=== PATIENT | female | born 1965 | race Caucasian/White ===

== ENCOUNTER → 2017-01-18 | Outpatient (CLI) | payer BC ==
--- NOTE | 2017-01-18 21:25 | MR ---
EXAMINATION TYPE: MR pituitary wo/w con DATE OF EXAM: 01/18/2017 9:12 PM COMPARISON: MRI brain September 28, 2011. HISTORY: F/U on pituitary adenoma TECHNIQUE: Multiplanar, multisequence images of the brain and brainstem is performed without and with IV contras t, utilizing 17 mL intravenous MultiHance . Pituitary gland protocol. FINDINGS: Pituitary stalk shows stable homogeneous enhancement in the midline on coronal image 13. Pi tuitary gland is not enlarged at the level of the sella turcica. Post contrast images show heterogene ous enhancement with small area of diminished enhancement involving the posterior inferior aspect see n best on sagittal image 11 that is not changed from prior exam. Microadenoma at this level cannot be excluded. Suprasellar cistern is maintained. Optic chiasm is not effaced. Foramen magnum is within normal limit s. No gross hydrocephalus is present. IMPRESSION: Overall stable findings, small microadenoma posterior inferior aspect of pituitary gland cannot be excluded.
== END | disposition home or self-care (01) ==
LOC: RADMRIMAIN 20:05
PROVIDERS: ATTEND Family Medicine
DX: D35.2 Benign neoplasm of pituitary gland (principal)
CPT/HCPCS: 70553; A9577

== ENCOUNTER → 2017-12-21 | Outpatient (CLI) | payer BC ==
--- NOTE | 2017-12-21 09:44 | CT ---
EXAMINATION TYPE: CT facial bones w con DATE OF EXAM: 12/21/2017 COMPARISON: NONE HISTORY: Chronic sinusitis, unspecified CT DLP: 624 mGycm Automated exposure control for dose reduction was used. CONTRAST: CT scan of the facial bones is performed with IV Contrast, patient injected with 100 ml mL of Omnipaq ue 300. TECHNIQUE: CT scan of the sinuses is performed without contrast, axial images are obtained, coronal r eformatted images are also reviewed. FINDINGS: Dental amalgam causes some artifact across the exam. There is a tooth that is unerupted, it has partially extending into the right maxillary sinus posteriorly. Minimal mucosal disease present within the bilateral maxillary sinuses. Melissa bullosa present bilaterally greater on the right side. Visualized portion of mastoid air cells show no abnormal opacification. The globes are intact bilate rally. IMPRESSION: Mild mucoperiosteal thickening in the maxillary sinuses with unerupted tooth posteriorly as described.
== END | disposition home or self-care (01) ==
LOC: RADCTMAIN 08:11
PROVIDERS: ATTEND Family Medicine
DX: J34.89 Other specified disorders of nose and nasal sinuses (principal)
CPT/HCPCS: 70487; Q9967

== ENCOUNTER → 2018-01-25 | Outpatient (CLI) | payer BC ==
--- NOTE | 2018-01-25 12:11 | ECHOF ---
Referral Reason:I51.7 Cardiomegaly MEASUREMENTS -------- HEIGHT: 165.1 cm WEIGHT: 83.0 kg BP: RVIDd: 2.9 cm (< 3.3) IVSd: 1.2 cm (0.6 - 1.1) LVIDd: 4.0 cm (3.9 - 5.3) LVPWd: 1.1 cm (0.6 - 1.1) IVSs: 1.3 cm LVIDs: 3.1 cm LVPWs: 1.2 cm LA Diam: 3.0 cm (2.7 - 3.8) LAESV Index (A-L): 21.41 ml/m Ao Diam: 2.7 cm (2.0 - 3.7) AV Cusp: 1.8 cm (1.5 - 2.6) LA Diam: 3.6 cm (2.7 - 3.8) MV EXCURSION: 15.618 mm (> 18.000) MV EF SLOPE: 93 mm/s (70 - 150) EPSS: 0.5 cm MV E Bernardo: 0.86 m/s MV DecT: 134 ms MV A Bernardo: 0.56 m/s MV E/A Ratio: 1.53 RAP: 5.00 mmHg RVSP: 24.54 mmHg FINDINGS -------- Sinus rhythm. This was a technically adequate study. The left ventricular size is normal. There is mild concentric left ventricular hypertrophy. Overa ll left ventricular systolic function is normal with, an EF between 55 - 60 %. The right ventricle is normal in size. The left atrial size is normal. Normal LA size by volume 22+/-6 ml/m2. The right atrial size is normal. The aortic valve is trileaflet, and appears structurally normal. No aortic stenosis or regurgitation. Mild mitral annular calcification present. Mild mitral regurgitation is present. Mild tricuspid regurgitation present. There is no evidence of pulmonary hypertension. The right v entricular systolic pressure, as measured by Doppler, is 24.54mmHg. There is no pulmonic regurgitation present. The aortic root size is normal. There is no pericardial effusion. CONCLUSIONS -------- 1. The left ventricular size is normal. 2. There is mild concentric left ventricular hypertrophy. 3. Overall left ventricular systolic function is normal with, an EF between 55 - 60 %. 4. Normal LA size by volume 22+/-6 ml/m2. 5. The aortic valve is trileaflet, and appears structurally normal. No aortic stenosis or regurgitati on. 6. Mild mitral annular calcification present. 7. Mild mitral regurgitation is present. 8. Mild tricuspid regurgitation present. 9. There is no evidence of pulmonary hypertension. 10. The right ventricular systolic pressure, as measured by Doppler, is 24.54mmHg. 11. There is no pulmonic regurgitation present. 12. The aortic root size is normal. 13. There is no pericardial effusion. EXCAVATOR BACKHOE OPERATOR: Helga Jasmine RDCS
== END ==
LOC: RADECHMAIN 07:35
PROVIDERS: ATTEND Family Medicine
DX: I08.1 Rheumatic disorders of both mitral and tricuspid valves (principal)
CPT/HCPCS: 93306

== ENCOUNTER 2018-04-04 05:38 | Day surgery (SDC) | payer BC ==
[2018-04-01 11:28] VITALS: BMI 29.0
[~2018-04-04 05:38] MED LIST: DEXAMETHASONE SOD PHOSPHATE 10 MG/ML 1 ML VIAL IV ONE; FAMOTIDINE 20 MG/2 ML VIAL IV ONE; LACTATED RINGERS 1,000 ML IV SCH; LIDOCAINE 1% 20 ML VIAL (10MG/ML) FOR IV START INTRADERMA PRN; MIDAZOLAM 2 MG/2 ML VIAL IV PRN; SCOPOLAMINE 1.5MG/72HR PATCH TRANSDERM ONE
[2018-04-04] MEDS ORDERED: OXYMETAZOLINE 0.05% NASL SPRAY 1 SPRAY BOTTLE EA NOSTRIL ONE (06:25)
[2018-04-04] MEDS ORDERED: DEXAMETHASONE SOD PHOS (MDV) 100 MG/10 ML VIAL ONE (07:00)
[2018-04-04] MEDS ORDERED: MIDAZOLAM 2 MG/2 ML VIAL ONE (07:00)
[2018-04-04] MEDS ORDERED: fentaNYL (PF) 50 MCG/ML 2 ML AMP ONE (07:00)
[2018-04-04] MEDS ORDERED: ePHEDrine SULFATE/0.9% NACL/PF 50 MG/5 ML SYRINGE IV ONE (07:00)
[2018-04-04] MEDS ORDERED: SUCCINYLCHOLINE CHLORIDE 100 MG/5 ML SYR IV ONE (07:00)
[2018-04-04] MEDS ORDERED: PROPOFOL 10 MG/ML 20 ML VIAL IV ONE (07:00)
[2018-04-04] MEDS ORDERED: LIDOCAINE 1% INJ 10MG/ML (20 ML MDV) ONE (07:00)
[2018-04-04] MEDS ORDERED: FLUORESCEIN STRIPS 1 MG STRIP MISCELLANE ONE (07:17)
[2018-04-04] MEDS ORDERED: BUPIVACAINE (PF) 0.5% 30 ML VIAL SQ ONE ×2 (07:17)
[2018-04-04] MEDS ORDERED: LIDOCAINE 1%-EPI 1:100,000 20 ML VIAL SQ ONE ×2 (07:17)
[2018-04-04] MEDS ORDERED: EPINEPHrine 1 MG/ML (MDV) 30 ML VIAL TOPICAL ONE (07:17)
[2018-04-04] MEDS ORDERED: BACITRACIN 500 UNIT/GM OINT 28.4 GM TUBE TOPICAL ONE (08:00)
[2018-04-04 08:31] VITALS: TEMP 97
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
[2018-04-04] MEDS: fentaNYL (PF) 50 MCG/ML 2 ML AMP IV PRN ×2 (08:45→08:54)
[2018-04-04 09:40] VITALS: BP 127/74; PULSE 88; RESP 16
== END 2018-04-04 09:59 | disposition home or self-care (01) ==
LOC: OR 05:38
PROVIDERS: ATTEND Otolaryngology
DX: J32.9 Chronic sinusitis, unspecified (principal); J33.1 Polypoid sinus degeneration; J34.2 Deviated nasal septum; J34.3 Hypertrophy of nasal turbinates; L90.5 Scar conditions and fibrosis of skin; J45.909 Unspecified asthma, uncomplicated; K00.6 Disturbances in tooth eruption; R43.0 Anosmia; D35.2 Benign neoplasm of pituitary gland; E78.00 Pure hypercholesterolemia, unspecified; H54.62 Unqualified visual loss, left eye, normal vision right eye; Z79.1 Long term (current) use of non-steroidal anti-inflammatories (NSAID); Z79.899 Other long term (current) drug therapy; Z88.6 Allergy status to analgesic agent; Z91.030 Bee allergy status; Z88.8 Allergy status to other drugs, medicaments and biological substances; Z91.040 Latex allergy status; Z87.891 Personal history of nicotine dependence
CPT/HCPCS: 88305; 88300; 30520; 30140; 31240; 13151; 31267; 31253; 31259; C2625; J0171; J2250; J1100 ×2; J2001; J3010; J0330; J2704

== ENCOUNTER → 2020-04-16 | Outpatient (CLI) | payer BC ==
--- NOTE | 2020-04-18 15:57 | MR ---
EXAMINATION TYPE: MR pituitary wo/w con DATE OF EXAM: 04/16/2020 COMPARISON: 01/18/2017 HISTORY: 54-year-old female D35.2, F/U pituitary adenoma Technique: Multiplanar, multisequence images of the brain/sella were obtained before and after admini stration of 9 mL intravenous Gadavist gadolinium contrast. FINDINGS: The sella turcica is not enlarged. Pituitary gland is of normal size in sagittal and coronal planes. Postcontrast images again show a small focus of diminished enhancement measuring 2.5 mm AP and 4.0 mm wide along the posterior inferior aspect of the gland, refer to postcontrast coronal image 12 and sa gittal image 9. No other intra or suprasellar mass. Pituitary stalk is seen enhancing with contrast and not displaced. The optic chiasm and anterior third ventricle are well visualized and not displaced or compressed. IMPRESSION: Small 4.0 x 2.5 mm focus of hypoenhancement within the posterior inferior pituitary gland redemonstra lee. Tiny cyst versus pituitary microadenoma, unchanged from prior.
== END | disposition home or self-care (01) ==
LOC: RADMRIMAIN 14:51
PROVIDERS: ATTEND Family Medicine
DX: E23.6 Other disorders of pituitary gland (principal); D35.2 Benign neoplasm of pituitary gland
CPT/HCPCS: 70553; A9585

== ENCOUNTER → 2020-05-14 | Outpatient (CLI) | payer BC ==
--- NOTE | 2020-05-14 23:11 | MR ---
EXAMINATION TYPE: MR shoulder LT wo con DATE OF EXAM: 05/14/2020 COMPARISON: None HISTORY: Injured muscle/tendon, left shoulder pain Multiplanar multiecho imaging of the left shoulder was performed with no contrast. There is mild to moderate shoulder joint effusion. Biceps tendon is intact. Subscapularis tendon is i ntact. The anterior glenoid labrum appears intact. There is prominent middle glenohumeral ligament. P osterior labrum is intact. The subscapularis tendon is intact. There is no retraction. There is hyper trophic spurring at the AC joint. The humeral head is intact. There is no evidence of a fracture. The re is mild narrowing of the glenohumeral joint space. IMPRESSION: No evidence of rotator cuff tear. Moderate shoulder joint effusion suggestive of a nonspecific synovi tis. No fracture seen. Mild osteoarthritic narrowing of the glenohumeral joint space.
== END | disposition home or self-care (01) ==
LOC: RADMRIMAIN 09:40
PROVIDERS: ATTEND Family Medicine
DX: M19.012 Primary osteoarthritis, left shoulder (principal)

== ENCOUNTER → 2023-01-22 | Outpatient (CLI) | payer BC ==
--- NOTE | 2023-01-22 16:10 | XR ---
EXAMINATION TYPE: XR elbow complete LT DATE OF EXAM: 01/22/2023 CLINICAL HISTORY: Fall injury with pain TECHNIQUE: Frontal, lateral and oblique images of the left elbow are obtained. COMPARISON: None FINDINGS: There is visualization of posterior fat pad sign but not anterior bowing of the anterior f at pad. There is no acute displaced evident in the left elbow. Bony projection from the distal latera l femoral condyle at the flexor tendon insertion is noted. IMPRESSION: As above. No acute displaced fracture clearly seen. Consider follow-up CT and/or repeat r adiographs in 7-10 days if symptoms of pain persist.
== END | disposition home or self-care (01) ==
LOC: RADXRMAIN 15:39
PROVIDERS: ATTEND Internal Medicine Geriatric Medicine
DX: M12.522 Traumatic arthropathy, left elbow (principal)

== ENCOUNTER → 2024-01-11 | Outpatient (CLI) | payer BC ==
[2024-01-11 18:44] LABS: Hepatitis B Surface AB- Quant 69.1 mIU/mL
== END | disposition home or self-care (01) ==
LOC: LABWHC1 12:32
PROVIDERS: ATTEND Family Medicine
DX: Z01.84 Encounter for antibody response examination (principal)
CPT/HCPCS: 36415; 86317; 86480; 86706; 86762; 86787

== ENCOUNTER → 2024-01-16 | Outpatient (CLI) | payer BC ==
[2024-01-17 20:51] LABS: Mumps Virus IgG Ab Interp POSITIVE; Mumps Virus IgG Antibody 2.4 AI
== END | disposition home or self-care (01) ==
LOC: LABWHC1 12:24
PROVIDERS: ATTEND Family Medicine
DX: Z01.84 Encounter for antibody response examination (principal)
CPT/HCPCS: 36415; 86735; 86765

== ENCOUNTER → 2024-01-17 | Outpatient (CLI) | payer BC ==
[2024-01-17 16:29] LABS: ALT 30 U/L (8-44); AST 20 U/L (13-35); Albumin 4.7 g/dL (3.8-4.9); Albumin/Globulin Ratio 1.96 Ratio (1.60-3.17); Alkaline Phosphatase 79 U/L (41-126); BUN/Creat Ratio 13.75 Ratio (12.00-20.00); Calcium 10.4 mg/dL (8.7-10.3); Carbon Dioxide 27.4 mmol/L (21.6-31.8); Chloride 105 mmol/L (96-109); Chol/HDL Ratio 3.31 Ratio; Globulin 2.4 g/dL (1.6-3.3); Glucose 103 mg/dL (70-110); LDL Cholesterol,Calculated 145.1 mg/dL (0.0-131.0); Potassium 4.8 mmol/L (3.5-5.5); Sodium 142 mmol/L (135-145); Total Bilirubin 0.8 mg/dL (0.3-1.2); Total Protein 7.1 g/dL (6.2-8.2)
[2024-01-17 16:33] LABS: Basophils # (A) 0.06 X 10*3/uL (0.00-0.10); Basophils % (A) 0.8 %; Eosinophils # (A) 0.22 X 10*3/uL (0.04-0.35); HCT 46.1 % (37.2-46.3); Lymphocytes # (A) 2.28 X 10*3/uL (0.90-5.00); MCH 30.7 pg (27.0-32.0); MCHC 32.5 g/dL (32.0-37.0); MCV 94.3 FL (80.0-97.0); Mean Platelet Volume 12.6 FL (9.5-12.2); Monocytes % (A) 8.2 %; NRBC Per 100 WBC 0 X 10*3/uL (0.00-0.01); Neutrophils # (A) 4.19 X 10*3/uL (1.80-7.70); Neutrophils % (A) 56.9 %; Platelet Count 285 X 10*3/uL (140-440); RBC 4.89 X 10*6/uL (4.10-5.20); RDW 12.2 % (11.5-14.5); WBC 7.36 X 10*3/uL (4.50-10.00)
== END | disposition home or self-care (01) ==
LOC: LABWHC1 08:01
PROVIDERS: ATTEND Family Medicine
DX: Z00.00 Encounter for general adult medical examination without abnormal findings (principal); E78.5 Hyperlipidemia, unspecified; E53.8 Deficiency of other specified B group vitamins; E55.9 Vitamin D deficiency, unspecified; R00.1 Bradycardia, unspecified; R73.9 Hyperglycemia, unspecified
CPT/HCPCS: 36415; 80053; 80061; 82306; 82607; 83036; 84439; 84443; 85025

== ENCOUNTER → 2024-01-29 | Outpatient (CLI) | payer BC ==
--- NOTE | 2024-01-29 14:56 | MM ---
Reason for Exam: Screening (asymptomatic). Last mammogram was performed 9 year(s) and 4 month(s) ago. Patient History: Menarche at age 16. First Full-Term at age 22. Hysterectomy at age 42. Postmenopausal. Patient has history of breast feeding. Estrogen, from age 42 until age 43. Patient used Hormonal Contraceptives for 4 years. 12/22/2014, Benign Core Biopsy on the right side. 12/22/2014, Benign Core Biopsy on the right side. 08/26/2007, Benign Core Biopsy on the right side. 08/26/2007, Benign Core Biopsy on the right side. Maternal grandmother had breast cancer. Maternal aunt had breast cancer, age 30. Maternal aunt had breast cancer, age 50. Mother had breast cancer, age 29. Mother had breast cancer under age 50. Mother had breast cancer at or over age 50. Risk Values: Nuria 5 year model risk: 3.2%. NCI Lifetime model risk: 19.7%. Prior Study Comparison: 08/20/2007 Right Diagnostic Mammogram, [facility]. 03/12/2009 Bilateral Diagnostic Mammogram, [facility]. 09/28/2011 Bilateral Diagnostic Mammogram, [facility]. 10/19/2014 Bilateral Diagnostic Mammogram, [facility]. Tissue Density: There are scattered areas of fibroglandular density. Findings: Analyzed By CAD. Right breast biopsy clip. Right breast: There is no suspicious group of microcalcifications or new suspicious mass. Benign-appearing calcifications right breast. Left breast: There is no suspicious group of microcalcifications or new suspicious mass. Overall Assessment: Benign, BI-RAD 2 Management: Screening Mammogram of both breasts in [address] [facility] will attempt to contact patient to return for supplemental views and ultrasound if indicated. Patient should continue monthly self-breast exams. A clinical breast exam by your physician is recommended on an annual basis. This exam should not preclude additional follow-up of suspicious palpable abnormalities. Note on Nuria scores and lifetime risk: 1. A Nuria score greater than 3% is considered moderate risk. If this is the case, consider specialist referral to assess eligibility for a risk reducing agent. 2. If overall lifetime risk for the development of breast cancer is 20% or higher, the patient may qualify for future screening with alternating mammogram and breast MRI. Electronically signed and approved by: Donta Beth DO
== END | disposition home or self-care (01) ==
LOC: RADMAMWWP 13:42
PROVIDERS: ATTEND Family Medicine
DX: Z12.31 Encounter for screening mammogram for malignant neoplasm of breast (principal); Z78.0 Asymptomatic menopausal state; Z80.3 Family history of malignant neoplasm of breast
CPT/HCPCS: 77063; 77067

== ENCOUNTER → 2024-02-01 | Outpatient (CLI) | payer BC ==
--- NOTE | 2024-02-01 11:19 | BD ---
EXAMINATION TYPE: Axial Bone Density DATE OF EXAM: 02/01/2024 CLINICAL HISTORY: 58 years old Female. ICD-10 CODE: M85.8 [facility] DISRD OF BONE DENSITY AND STRUCTURE, U NS Height: Weight: FRAX RISK QUESTIONS: Family History (Parent hip fracture): yes Glucocorticoids (More than 3mos): not routinely, reactive airway on and off, then uses (Ex: prednisone, prednisolone, methylprednisolone, dexamethasone, and hydrocortisone). Secondary Osteoporosis: yes 3. Menopause before 45: yes at 32 yrs old total hyst Current Tobacco Use: quit yrs and yrs ago RISK FACTORS HISTORY OF: nothing to note here MEDICATIONS: multivitamin, cholesterol meds, but none for about 9 mos Thyroid Medications: yes, for about 1 week only, synthroid product EXAM MEASUREMENTS: Bone mineral densitometry was performed using the Skyf[employer] System. Bone mineral density as measured about the Lumbar spine is: ----- L1-L4(G/cm2): 1.143 T Score Values are as follows: ----- L1: 0.1 ----- L2: 0.2 ----- L3: -0.4 ----- L4: -1.1 ----- L1-L4: -0.3 Z Score Values are as follows: ----- L1: 0.2 ----- L2: 0.3 ----- L3: -0.3 ----- L4: -1.1 ----- L1-L4: -0.2 Bone mineral density is a baseline test today. Bone mineral density about the R hip (g/cm2): 0.992 Bone mineral density about the L hip (g/cm2): 1.009 T Score values are as follows: -----R Neck: -0.5 -----L Neck: -0.9 -----R Total: -0.1 -----L Total: 0.0 Z Score values are as follows: -----R Neck: 0.0 -----L Neck: -0.4q -----R Total: 0.0 -----L Total: 0.1 Bone mineral density is a baseline study. FRAX%s: The graph provided illustrates a 11.5% chance for a major osteoporotic fx and a 0.3% chance f or the hips probability for fx in 10 years time. IMPRESSION: Normal (Values between +1 and -1 indicate normal bone mass). Consider repeating this study in 5 year s or sooner if there is some new clinical indication. NOTE: T-SCORE=SD OF THE YOUNG ADULT MEAN.
== END | disposition home or self-care (01) ==
LOC: RADBDWWP 10:13
PROVIDERS: ATTEND Family Medicine
DX: M85.89 Other specified disorders of bone density and structure, multiple sites (principal); Z78.0 Asymptomatic menopausal state
CPT/HCPCS: 77080